=== PATIENT | female | born 1965 | race Caucasian/White ===

== ENCOUNTER 2016-06-15 11:03 | Emergency (ER) | payer OTHER ==
[2016-06-15] MEDS ORDERED: KETOROLAC 60 MG/2 ML VIAL IM STA (12:21)
[2016-06-15] MEDS ORDERED: KETOROLAC 60 MG/2 ML VIAL ONE (12:22)
== END 2016-06-15 13:04 | disposition home or self-care (01) ==
DX: S39.012A Strain of muscle, fascia and tendon of lower back, initial encounter (principal); X50.0XXA Overexertion from strenuous movement or load, initial encounter; Y99.0 Civilian activity done for income or pay; R03.0 Elevated blood-pressure reading, without diagnosis of hypertension
CPT/HCPCS: 1040M; 96372; 99283

== ENCOUNTER 2016-06-22 13:45 | Outpatient (CLI) | payer OTHER | END 2016-06-22 13:46 | disposition home or self-care (01) | DX: R50.9 Fever, unspecified (principal) ==

== ENCOUNTER 2016-08-06 10:12 | Outpatient (CLI) | payer OTHER ==
--- NOTE | 2016-08-09 11:24 | Mammography Report ---
DIGITAL BILATERAL SCREENING MAMMOGRAM: 08/06/2016 CLINICAL HISTORY: This is a 51-year-old female in for routine screening mammogram. The patient has no family history of breast cancer. The patient has had no prior breast surgeries. TECHNIQUE: Craniocaudad and oblique lateral views of each breast were obtained with [employer] full fiel d digital mammography. COMPARISON: 09/19/2013, 06/10/2009. FINDINGS: The breasts are almost entirely composed of fat. No significant clusters of calcification are seen. No masses are noted. No change is seen. IMPRESSION: THE BREASTS APPEAR RADIOGRAPHICALLY BENIGN. BIRADS CATEGORY 1-NEGATIVE. RECOMMENDATION: ANNUAL BILATERAL SCREENING MAMMOGRAPHY. STANDARD QUALIFYING STATEMENTS 1. This examination was reviewed with the aid of Computer-Aided Detection (CAD). 2. A negative or benign imaging report should not delay biopsy if clinically suspicious findings are present. Consider surgical consultation if warranted. More than 5% of cancers are not identified by i maging. 3. Dense breasts may obscure an underlying neoplasm. JOB #: [id number] EXT JOB #:[id number]
== END 2016-08-06 10:13 | disposition home or self-care (01) ==
LOC: DI.N 10:12
PROVIDERS: ATTEND Physician Assistant Medical
DX: Z12.31 Encounter for screening mammogram for malignant neoplasm of breast (principal)
CPT/HCPCS: 77067

== ENCOUNTER 2017-03-17 20:00 | Emergency (ER) | payer OTHER ==
[2017-03-17] MEDS ORDERED: HYDROcod/ACETAM 5/325 MG TABLET PO STA (21:45)
--- NOTE | 2017-03-17 22:29 | XRAY Report ---
EXAM: RIGHT KNEE RADIOGRAPHY EXAM DATE: 03/17/2017 09:56 PM. CLINICAL HISTORY: Fall, anterior knee pain, laceration. COMPARISON: None. TECHNIQUE: 3 views. FINDINGS: Bones: No acute displaced fractures or suspicious bony lesion. Joints: No subluxations. No significant effusion. Soft Tissues: No significant soft tissue swelling. IMPRESSION: No acute osseous abnormality demonstrated. [facility] Referring Provider Line: [phone] SITE ID: [id number]
--- NOTE | 2017-03-17 22:48 | ED Physician Documentation ---
History of Present Illness - Stated complaint Stated Complaint: KNEE LAC - Chief complaint Chief Complaint: Laceration - History obtained from History obtained from: Patient (pt is here for a left knee laceration. she staes that she fell on her left knee while going up some stairs. did not hit her head.) Review of Systems Constitutional: denies: Fever, Chills Skin: reports: Laceration (s) Musculoskeletal: reports: Joint pain (right knee) Neurologic: denies: Generalized weakness, Focal weakness PD PAST MEDICAL HISTORY - Past Medical History Past Medical History: No - Past Surgical History Past Surgical History: Yes /[employer]: section - Present Medications Home Medications: Ambulatory Orders Medication Instructions Recorded Confirmed Cyclobenzaprine [Flexeril] 10 mg PO TID PRN #20 tablet 06/15/16 Lidocaine Patch 5% [Lidoderm Patch] 1 each TOP DAILY PRN #10 patch 06/15/16 HYDROcod/ACET 5/325 Prepack 6 1 bottle PO Q4H #1 bottle 03/17/17 [NORCO 5/325 Prepack 6] - Allergies Allergies/Adverse Reactions: Allergies Allergy/AdvReac Type Severity Reaction Status Date / Time penicillamine Allergy Rash Verified 03/17/17 20:21 - Social History Does the pt smoke?: No Smoking Status: Never smoker Does the pt drink ETOH?: Yes ETOH Use: Beer Does the pt have substance abuse?: No - Immunizations Immunizations are current?: Yes - POLST Patient has POLST: No PD ED PE NORMAL - Vitals Vital signs reviewed: Yes - General General: Alert and oriented X 3, Well developed/nourished - Cardiac Cardiac: Strong equal pulses (DP) - Derm Derm: Other (10 cm laceration to the anterior right knee) - Extremities Extremities: Other (TTP right knee with pain with movement. ) - Neuro Neuro: Other (sensation intact to light touch to the right LE) Results - Vitals Vitals: Vital Signs - 24 hr 03/17/17 20:21 Temperature 36.1 C L Heart Rate 70 Respiratory 18 Rate Blood Pressure 168/100 H O2 Saturation 96 Oxygen O2 Source Room air - Rads (name of study) knee Radiology: Final report received (no acute fracture ), EMP read contemporaneously Procedures - Laceration (location) right knee Wound type: Linear Neurovascular status: Sensory intact Tendon involvement: Tendon intact Anesthesia: Lidocaine 1% with epi (8cc) Wound Preparation: Irrigated copiously NS, Wound explored Skin layer closure: Nylon, Size #-0 - enter number (3-0), Sutures - enter # (16) Other: Patient tolerated well Complexity: Simple PD MEDICAL DECISION MAKING - ED course Complexity details: reviewed results, d/w patient ED course: no fx on x-ray. n/v intact. closed as above. care instructions given to patient. Departure - Departure Disposition: 01 Home, Self Care Clinical Impression: Laceration Condition: Good Instructions: Sutr Care Follow-Up: Ericka Leach PA-C [Primary Care Provider] - Prescriptions: HYDROcod/ACET 5/325 Prepack 6 [NORCO 5/325 Prepack 6] 1 bottle PO Q4H #1 bottle Comments: The stitches will need to be removed in 10 days. do the best you can to not bend your knee. keep the stitches clean and dry however you may shower as normal. Return to the ER for any new or worsening symptoms. Forms: Activity restrictions
[2017-03-17 22:51] VITALS: BP 124/76
[2017-03-17] MEDS ORDERED: BACITRACIN OINT TOP STA (22:52)
[2017-03-17] MEDS ORDERED: BACITRACIN OINT TOP ONE (22:53)
[2017-03-17] MEDS ORDERED: HYDROcod/ACET 5/325 Prepack 6 PO STA (23:01)
== END 2017-03-17 23:05 | disposition home or self-care (01) ==
LOC: ED 20:00
DX: S81.011A Laceration without foreign body, right knee, initial encounter (principal); W10.1XXA Fall (on)(from) sidewalk curb, initial encounter
CPT/HCPCS: 12004; 73562; 99283; A9270

== ENCOUNTER 2022-11-05 09:28 | Outpatient (CLI) | payer OTHER ==
[2022-11-05 12:19] LABS: BASOPHILS % (AUTO) 0.6 %; EOSINOPHILS # (AUTO) 0.1 10^3/uL (0.0-0.7); EOSINOPHILS % (AUTO) 1.7 %; HCT - HEMATOCRIT 42.1 % (37.0-47.0); HGB - HEMOGLOBIN 14.1 g/dL (12.0-16.0); LYMPHOCYTES # (AUTO) 1.4 10^3/uL (1.5-3.5); LYMPHOCYTES % (AUTO) 39.7 %; MEAN CORPUSCULAR HEMOGLOBIN 32.1 pg (27.0-31.0); MEAN CORPUSCULAR HGB CONC 33.5 g/dL (32.0-36.0); MEAN CORPUSCULAR VOLUME 95.9 fL (81.0-99.0); MEAN PLATELET VOLUME 11.3 fL (7.9-10.8); MONOCYTES # (AUTO) 0.4 10^3/uL (0.0-1.0); MONOCYTES % (AUTO) 9.8 %; NEUTROPHILS # (AUTO) 1.7 10^3/uL (1.5-6.6); NEUTROPHILS % (AUTO) 47.9 %; PLT - PLATELET COUNT 228 10^3/uL (130-450); RED BLOOD COUNT 4.39 10^6/uL (4.20-5.40); WHITE BLOOD COUNT 3.6 x10^3/uL (4.8-10.8)
[2022-11-05 12:47] LABS: ALBUMIN 4.5 g/dL (3.2-5.5); ALBUMIN/GLOBULIN RATIO 1.7 (1.0-2.2); ALKALINE PHOSPHATASE 55 IU/L (42-121); ALT ALANINE AMINOTRANSFERASE 13 IU/L (10-60); AST ASPARTATE AMINOTRANSFERASE 17 IU/L (10-42); BILIRUBIN,TOTAL 0.5 mg/dL (0.2-1.0); BUN - BLOOD UREA NITROGEN 13 mg/dL (6-20); CALCIUM 9.7 mg/dL (8.5-10.3); CARBON DIOXIDE - CO2 29 mmol/L (21-32); CHLORIDE 104 mmol/L (101-111); CHOL/HDL RATIO 4.5 (<4.4); CHOLESTEROL 295 mg/dL; CREATININE 0.8 mg/dL (0.6-1.3); GFR - MDRD 73 (>89); GLUCOSE 94 mg/dL (74-104); HDL CHOLESTEROL 66 mg/dL; POTASSIUM 4.7 mmol/L (3.5-4.5); SODIUM 139 mmol/L (135-145); TOTAL PROTEIN 7.1 g/dL (6.4-8.9); TRIGLYCERIDES 441 mg/dL (48-352)
[2022-11-05 12:48] LABS: THYROID STIMULATING HORMONE 1.46 uIU/mL (0.34-5.60)
[2022-11-05 13:10] LABS: LDL CHOLESTEROL,DIRECT 177 mg/dL (75-193); LDLD/HDL RATIO 2.7 (<4.4)
== END 2022-11-05 09:29 | disposition home or self-care (01) ==
LOC: LAB.N 09:28
PROVIDERS: ATTEND Physician Assistant
DX: I10 Essential (primary) hypertension (principal); Z13.220 Encounter for screening for lipoid disorders
CPT/HCPCS: 36415; 80053; 80061; 83721; 84443; 85025